=== PATIENT | male | born 1990 | race Caucasian/White ===

== ENCOUNTER 2017-10-27 01:10 | Emergency (ER) | payer SELFPAY ==
[~2017-10-27] VITALS: Ht 182.9 cm; Wt 65.3 kg
[~2017-10-27 01:10] MED LIST: BACTRIM,SEPT1 TABLET PO; BISAC-EVAC10 MG PR; BISACODYL5 MG PO; Colace PO; ENDOCET 5-3251 EACH PO; KEFLEX500 MG PO; MAG-AL PLUS SUS30 ML PO; MILK OF MAGNESI10 ML PO; NOHOMEMEDS; OXYCODONE HCL5 MG PO; SENNA8.6 MG PO
[2017-10-27] MEDS ORDERED: NARCAN4 MG NS (04:17)
[2017-10-27 04:35] VITALS: BP 104/68
== END 2017-10-27 04:37 | disposition home or self-care (01) ==
LOC: EME → EDBD 01:10 → EME 01:10
DX: T40.1X1A Poisoning by heroin, accidental (unintentional), initial encounter (principal); F17.200 Nicotine dependence, unspecified, uncomplicated; Z88.6 Allergy status to analgesic agent
CPT/HCPCS: 99281; 99285; J2310; J7030